=== PATIENT | male | born 1960 | race African-American/Black ===

== ENCOUNTER 2021-03-07 18:38 | Emergency (ER) | payer MEDICARE, BC, SELFPAY ==
--- NOTE | 2021-03-07 18:46 | ED.EYEPROB ---
HPI - Eye Problem General Chief complaint: Eye Problems Stated complaint: right eye Time Seen by Provider: 03/07/21 18:47 Source: patient and RN notes reviewed History of Present Illness HPI Narrative: Patient is 61-year-old male who presents the urgent care with complaints of right eye pain with blood. Patient denies of any known injury. States that at 1 PM he was doing dishes and had a sharp shooting pain to the right eye. Patient states that he immediately looked into the mirror and noticed the blood to the right eye. Patient did have a lens replacement in the eye approximately 1 year ago. Currently denies of any visual changes. Patient does not wear contacts. Patient does typically wear glasses. Denies of any headaches. Denies of any recent falls. Patient has not put anything in the eye since the incident at 1 PM. No other acute complaints. No acute distress noted. Patient aware of the plan of care. Some parts of this dictation were generated by voice recognition software and may contain typographical and/or grammatical inaccuracies. Related Data Home Medications Medication Instructions Recorded Confirmed amlodipine 09/04/19 aspirin [Adult Low Dose Aspirin] 09/04/19 bupropion HCl mg PO 09/04/19 carvedilol 09/04/19 fluticasone furoate-vilanterol INHALATION 09/04/19 [Breo Ellipta] prednisone 09/04/19 ranitidine HCl 09/04/19 tacrolimus 09/04/19 Allergies Allergy/AdvReac Type Severity Reaction Status Date / Time No Known Allergies Allergy Verified 03/07/21 18:48 Review of Systems Review of Systems: Narrative: CONSTITUTIONAL: Denies fever, chills, or sweats. EYES: Denies visual changes. Reports of redness, blood, and pain to the right eye ENT: Denies rhinorrhea, congestion, sore throat, or otalgia. CARDIOVASCULAR: Denies chest pain, palpitations, or edema. RESPIRATORY: Denies cough or dyspnea. GASTROINTESTINAL: Denies abdominal pain, nausea, vomiting, or diarrhea. GENITOURINARY: Denies dysuria or hematuria. SKIN: Denies rash or itching. MUSCULOSKELETAL: Denies back pain, joint pain, or myalgia. NEUROLOGIC: Denies headache, numbness, or weakness. All other systems reviewed are negative, except as documented in HPI. [facility] Past Medical History Medical History (Updated 03/07/21 @ 19:06 by RUIZ Hendricks) FH: kidney cancer Surgical History Surgical History (Updated 09/04/19 @ 17:18 by RUIZ Mike) Kidney transplant recipient Social History Social History (Updated 09/04/19 @ 17:20 by RUIZ Mike) Smoking status: Never smoker Alcohol intake: never Substance use: never Comments At the time of my signature, I reviewed and agree with the nursing past medical, surgical, social, and family history. There is no relevant family history pertinent to the patient complaint. Exam Narrative: Exam Narrative: GENERAL: This is a well-nourished, well-developed patient, in no apparent distress. HEAD: normocephalic, atraumatic. EYES: PERRL. Left sclera clear/white. Large surrounding hematoma to the right sclera, possible retinal injury EARS: External ears normal, auditory canals clear and without drainage, TMs normal without perforation. Hearing grossly intact. NOSE: External nose normal with no obvious nasal discharge, nares without redness, no rhinorrhea. THROAT: Mucous membranes moist NECK: Neck supple CARDIOVASCULAR: Regular rate and rhythm without murmurs, gallops, or rubs. RESPIRATORY: Clear to auscultation. Breath sounds equal bilaterally. No wheezes, rales, or rhonchi. SKIN: warm, intact with no suspicious lesions or rash, good texture and turgor. NEURO: awake, alert, and oriented to person, place and time. There were no obvious focal neurologic abnormalities. EXTREMITIES: No clubbing, cyanosis, or edema. Course Vital Signs Vital signs: Vital Signs Temperature 98.0 F 03/07/21 18:50 Pulse Rate 74 03/07/21 18:50 Respiratory Rate 18 03/07/21
[2021-03-07 18:50] VITALS: BP 139/65; PULSE 74; RESP 18; TEMP 36.7; O2SAT 100
== END 2021-03-07 19:17 | disposition short-term general hospital (02) ==
PROVIDERS: Emergency Provider Nurse Practitioner Family; PCP Internal Medicine
DX: H11.31 Conjunctival hemorrhage, right eye (principal)
CPT/HCPCS: 99212; G0463

== ENCOUNTER 2023-03-07 17:03 | Emergency (ER) | payer MEDICARE, BC, SELFPAY ==
[2023-03-07 17:12] VITALS: BP 141/67; PULSE 71; RESP 16; TEMP 36.6; O2SAT 100
--- NOTE | 2023-03-07 17:24 | ED.LOWEXIN ---
HPI - Extremity Injury (Lower) General Chief Complaint: Extremity Injury, Lower Stated Complaint: Left Foot Pain Time Seen by Provider: 03/07/23 17:24 Source: patient Mode of arrival: ambulatory Limitations: no limitations History of Present Illness HPI Narrative: 63 yo M with hx of gout, kidney failure presents with c/o pain to L great toe with redness, warmth and mild swelling. Was seen here end of January with similar symptoms. States he takes prednisone for gout. Due to his kidney failure and dialysis cannot take NSAIDs. Kidney doctor changed allupurinol to 3 times a week and since then has been getting gout flares more often. pt is well appearing. Ambulatory with steady gait. All systems reviewed and negative except as noted above. Related Data Home Medications Medication Instructions Recorded Confirmed bupropion HCl 450 mg 24 hr tablet, mg PO 03/07/23 extended release (Forfivo XL) diltiazem HCl 90 mg tablet 90 mg PO DAILY 03/07/23 03/07/23 famotidine 20 mg tablet mg 03/07/23 fluticasone furoate 200 inhalation 03/07/23 mcg-vilanterol 25 mcg/dose inhalation powder (Breo Ellipta) hydralazine 10 mg tablet 10 mg PO BID 03/07/23 03/07/23 montelukast 10 mg tablet 10 mg PO DAILY 03/07/23 03/07/23 prednisone 5 mg tablet 5 mg PO DAILY 03/07/23 03/07/23 tacrolimus 1 mg capsule, mg 03/07/23 immediate-release temazepam 30 mg capsule mg 03/07/23 Allergies Allergy/AdvReac Type Severity Reaction Status Date / Time No Known Allergies Allergy Verified 03/07/23 17:07 Review of Systems Review of Systems: CONSTITUTIONAL: Denies fever, chills, or sweats. EYES: Denies visual changes, redness, or discharge. ENT: Denies rhinorrhea, congestion, sore throat, or otalgia. CARDIOVASCULAR: Denies chest pain, palpitations, or edema. RESPIRATORY: Denies cough or dyspnea. GASTROINTESTINAL: Denies abdominal pain, nausea, vomiting, or diarrhea. GENITOURINARY: Denies dysuria or hematuria. SKIN: Denies rash or itching. MUSCULOSKELETAL: Reports pain, redness and swelling to left great toe. NEUROLOGIC: Denies headache, numbness, or weakness. PSYCHIATRIC: Denies anxiety or depression. All other systems reviewed are negative, except as documented in HPI. [facility] Past Medical History Medical History (Updated 03/07/23 @ 17:37 by Renetta Avalos NP) FH: kidney cancer Surgical History Surgical History (Updated 09/04/19 @ 17:18 by Mariah Cruz, LINE TECHNICIAN) Kidney transplant recipient Social History Social History (Updated 09/04/19 @ 17:20 by Mariah Cruz, LINE TECHNICIAN) Smoking status: Never smoker Alcohol intake: never Substance use: never Comments At time of signature, agree with nursing past medical, surgical, social and family history. There is no relevant family history pertinent to the presenting complaint. Exam Narrative: GENERAL: This is a well-nourished, well-developed patient, in no apparent distress. HEAD: normocephalic, atraumatic. EYES: PERRL. Sclera clear/white. Vision is grossly intact. EARS: External ears normal NOSE: External nose normal NECK: Neck supple, non-tender without lymphadenopathy, masses or thyromegaly. CARDIOVASCULAR: Regular rate and rhythm without murmurs, gallops, or rubs. RESPIRATORY: Clear to auscultation. Breath sounds equal bilaterally. No wheezes, rales, or rhonchi. SKIN: warm, Dry, intact with no suspicious lesions or rash, good texture and turgor. NEURO: awake, alert, and oriented to person, place and time. There were no obvious focal neurologic abnormalities. EXTREMITIES: tenderness on palpation to L 1st MTP with mild swelling and redness. Course Course Level of Care: Express Care Visit Vital Signs Vital signs: Vital Signs Temperature 36.6 C 03/07/23 17:12 Pulse Rate 71 03/07/23 17:12 Respiratory Rate 16 03/07/23 17:12 Blood Pressure 141/67 H 03/07/23 17:12 Pulse Oximetry 100 03/07/23 17:12 Oxygen Delivery Room Air 03/07/23 17:1
== END 2023-03-07 18:35 | disposition home or self-care (01) ==
PROVIDERS: Emergency Provider Nurse Practitioner Family; PCP Internal Medicine
DX: M10.9 Gout, unspecified (principal); Z94.0 Kidney transplant status
CPT/HCPCS: 99213; G0463

== ENCOUNTER 2023-04-12 16:50 | Emergency (ER) | payer MEDICARE, BC, SELFPAY ==
[2023-04-12 16:54] VITALS: BP 146/78; PULSE 70; RESP 20; TEMP 36.9; O2SAT 100
--- NOTE | 2023-04-12 16:57 | ED.EXTPRO ---
HPI - Extremity Problem General Chief complaint: Extremity Problem,Nontraumatic Stated complaint: Gout Time Seen by Provider: 04/12/23 17:00 Source: patient Mode of arrival: ambulatory Limitations: no limitations History of Present Illness HPI Narrative: Mr. Carrera is a 63 year old male patient presenting to the clinic today with c/o possible gout to his bilateral great toes this past week. He reports he has had increasing redness and swelling and bilateral toes with pain. Having pain with walking. History of gouty arthritis Related Data Home Medications Medication Instructions Recorded Confirmed bupropion HCl 450 mg 24 hr tablet, 450 mg PO DAILY 03/07/23 04/12/23 extended release (Forfivo XL) diltiazem HCl 90 mg tablet 90 mg PO DAILY 03/07/23 04/12/23 famotidine 20 mg tablet 20 mg PO DAILY 03/07/23 04/12/23 fluticasone furoate 200 See Rx Instructions .Route .COMPLEX 03/07/23 04/12/23 mcg-vilanterol 25 mcg/dose inhalation powder (Breo Ellipta) hydralazine 10 mg tablet 10 mg PO BID 03/07/23 04/12/23 montelukast 10 mg tablet 10 mg PO DAILY 03/07/23 04/12/23 prednisone 5 mg tablet 5 mg PO DAILY 03/07/23 03/07/23 tacrolimus 1 mg capsule, 4 mg PO BID 03/07/23 04/12/23 immediate-release temazepam 30 mg capsule 30 mg PO BID 03/07/23 04/12/23 Allergies Allergy/AdvReac Type Severity Reaction Status Date / Time adhesive Allergy Rash Verified 04/12/23 17:00 Review of Systems Review of Systems: Pertinent positives per HPI. Patient denies any fever, chills, rash, headache, visual changes, dizziness, cough, runny nose, sore throat, shortness of breath, chest pain, palpitations, nausea, vomiting, diarrhea, constipation, abdominal pain, or any urinary issues. [facility] Past Medical History Medical History FH: kidney cancer Surgical History Surgical History Kidney transplant recipient Social History Social History Smoking status: Never smoker Alcohol intake: never Substance use: never Comments At the time of my signature, I reviewed and agree with the nursing past medical, surgical, social, and family history. There is no relevant family history pertinent to the patient complaint. Exam Narrative: General: Well-developed, well nourished, in no apparent distress Head: Normocephalic, atraumatic. Cardio: Regular rate and rhythm, s1 and s2 normal, no murmur appreciated. Resp: Clear to auscultation bilaterally, no rhonchi, rales, wheezing or rubs. Musculoskeletal: No deformity, redness and swelling to the bilateral proximal great toes, tender to palpation over the base of the right and left great toe, range of motion limited due to pain, muscle strength strong and equal, peripheral pulse strong, no edema, no cyanosis, walking with a cane Course Course Emergency Course: Portions of this record may have been created with voice recognition software. Level of Care: Express Care Visit Vital Signs Vital signs: Vital signs reviewed MDM - Extremity (Nontraumatic) MDM Narrative Medical decision making narrative: At the time of visit patient is resting comfortably on exam table. I suspect patient has gout of the right and left great toes. Will place the patient on a tapered dose of steroids. Supportive measures were discussed with the patient he voiced understanding discharge instructions agrees to treatment plan. Differential Diagnosis Differential diagnosis: Likely gout, cellulitis and other (Osteoarthritis) Discharge Plan Discharge Clinical Impression: Gout Patient Disposition: Home, Self-Care Condition: Stable Instructions: Antibiotic Form, Low Purine Diet (ED), Gout (ED) Additional Instructions: Take prednisone taper dose as prescribed Increase fluids and stay well hydrated Eat diet low in
== END 2023-04-12 17:11 | disposition home or self-care (01) ==
PROVIDERS: Emergency Provider Nurse Practitioner Family; PCP Internal Medicine
DX: M10.9 Gout, unspecified (principal); Z85.528 Personal history of other malignant neoplasm of kidney; Z90.5 Acquired absence of kidney
CPT/HCPCS: 99213; G0463